=== PATIENT | female | born 1965 | race Caucasian/White ===

== ENCOUNTER → 2022-08-05 13:06 | Outpatient (POV) | payer OTHER, SELFPAY ==
[2022-08-05 13:36] VITALS: BP 125/59; PULSE 89; RESP 18; O2SAT 97; BMI 32.9
--- NOTE | 2022-08-05 13:44 | EXP.PAIN.OV ---
HPI Data of Consult Patient: new to practice Consult date: 08/05/22 Requesting Physician: Davina Saucedo APRN Consult Narrative Reason for consult: Right shoulder pain, right mid back pain History of present illness: Ms. Ying is a 57 year old female who presents today as a new patient. She is a self-referral. Today she rates her pain a 5 out of 10. Patient states that her pain is all in her right shoulder area that radiates down to her mid back. Patient does state this is been going on for over 2 years. She states her left side never gives her any trouble that it is always on along the right. She describes it as an aching, throbbing sensation that is worse with increased activity. Patient does state that it interferes with her ability to perform activities of daily living such as cooking and cleaning or simply getting ready in the morning. Patient has tried [id number] Tylenol and ibuprofen along with heat and ice with minimal improvement. She does also use a TENS unit with some help. Patient has tried multiple topicals with no additional relief. She is not currently on any scheduled medications. Her Bola is [phone]. Its been reviewed and appropriate. CC: Davina Saucedo APRN [facility] Disclaimer: The information contained in this section may have been updated after the patient was seen, as this information can be updated by other users. Medical History (Updated 08/05/22 @ 13:49 by Davina Saucedo APRN) Diabetes Rheumatoid arthritis Social History Smoking Status: Never smoker alcohol intake: never current occupational status: employed Travel in the last 8 weeks: None Review of Systems Review of Systems Review of systems:: pertinent systems reviewed and negative unless documented below Review of systems (narrative): Review of Systems: General: No recent weight changes, no fever, no sleep disturbances Respiratory: No cough, no shortness of air, no recurring pulmonary infections Cardiovascular/peripheral vascular: No chest pain, no palpitations, no edema, no shortness of breath Gastrointestinal: No new onset incontinence, normal bowel movements reported Genitourinary: No new onset incontinence Musculoskeletal: Right shoulder pain, right mid back pain Psychiatric: [Normal mood/affect] Neurological: [Denies weakness in extremities], [denies balance issues] Meds Home Medications and Allergies Home Medications Medication Instructions Recorded Confirmed Type etanercept 50 mg/mL (1 mL) 50 mg SQ WEEKLY Diabetes 08/05/22 08/05/22 History subcutaneous pen injector (Enbrel SureClick) tirzepatide 2.5 mg/0.5 mL See Rx Instructions .Route 08/05/22 08/05/22 History subcutaneous pen injector .COMPLEX Diabetes (Mounjaro) New Prescriptions to Start Prescriptions: Allergies Allergy/AdvReac Type Severity Reaction Status Date / Time No Known Allergies Allergy Unverified 03/29/17 14:00 Objective Narrative: Physical Exam: General: Alert and oriented x3, no acute distress, pleasant and cooperative Lungs: Respirations even and unlabored, symmetrical chest expansion Eyes: PERRL Musculoskeletal: Flexion and extension of cervical [spine] somewhat guarded secondary to pain, [antalgic gait noted] point tenderness noted along right trapezius and right thoracic paraspinous muscles Neurological: Speech clear, no gross sensory deficit Oswestry index score of 13/26% Additional findings Additional findings: [facility] 10/16/2021 MRI cervical spine without contrast Findings: Alignment is normal. Vertebral body height is preserved. Signal intensity within the substance of the spinal cord is normal. Bone marrow signal intensity is normal. Paraspinal soft tissues are within normal limits. C2-3: There is no focal disc herniation. There is no central canal stenosis or right neuroforaminal narrowing. There is moderate to severe left neuroforaminal narrowing related to fa
== END ==
PROVIDERS: Visit Provider Nurse Practitioner Family
DX: M50.30 Other cervical disc degeneration, unspecified cervical region (principal); M47.812 Spondylosis without myelopathy or radiculopathy, cervical region; M25.511 Pain in right shoulder; M79.18 Myalgia, other site
CPT/HCPCS: 99202; G0463

== ENCOUNTER 2022-08-20 13:55 | Day surgery (SDC) | payer OTHER, SELFPAY ==
[2022-08-20 14:05] VITALS: BP 103/64; PULSE 90; RESP 20; TEMP 36.6; O2SAT 97; BMI 32.9
--- NOTE | 2022-08-20 14:14 | P.PCN_ITS ---
Procedure Date: 08/20/22 Time: 14:14 Anesthesiologist:: Curtis Castelan MD Complications:: None Pre-procedure Diagnosis:: Neck pain myofascial in origin and right shoulder pain Post-procedure Diagnosis:: Same Indications for Procedure:: This patient is a pleasant 57-year-old white female who is well-known to us with psoriatic arthritis. She has had some neck pain with right shoulder pain. She has previously had a cervical epidural steroid injection done at [facility]. This did help her some however now she has myofascial pain over the right upper trapezius and right scapular area. We will do trigger point injections to this area today. Procedure Details:: Trigger point injections x4 to right upper trapezius and right scapular area Informed consent was obtained the risk and benefits of the procedure were explained to the patient. Patient was taken to the procedure room. The right upper trapezius and right scapular area were prepped using ChloraPrep. Trigger points were palpated and marked. Each of these trigger points were injected with bupivacaine 0.25% 3 mils and Depo-Medrol 10 mg. A total of 4 trigger points were injected using total of 40 mg Depo-Medrol. Patient tolerated the procedure well with no complications. Plan and Disposition:: We will follow-up with this patient in 2 weeks. Will reevaluate symptoms at that time.
== END 2022-08-20 14:30 | disposition home or self-care (01) ==
PROVIDERS: Visit Provider Anesthesiology
DX: M79.18 Myalgia, other site (principal); M25.511 Pain in right shoulder
CPT/HCPCS: 20552; J1040

== ENCOUNTER → 2022-11-18 12:36 | Outpatient (POV) | payer BC, SELFPAY ==
--- NOTE | 2022-11-18 13:02 | EXP.PAIN.SOA ---
[facility] Pain Management SOAP Note Subjective:: Patient is a pleasant 57-year-old female who presents today for follow-up. We are currently treating the patient for myofascial pain of her right upper trapezius and right scapular area. Today she rates her pain a 3 out of 10. Patient states that her pain is all in her right shoulder area that radiates down her shoulder blades. She previously had trigger point injections at this location that provided 100% improvement lasting approximately 2.5 months. She states during that time she was able to increase her activity with overall improved function and decreased pain. She is interested in repeating this injection. She describes her current pain as an aching, throbbing sensation that is worse with increased activity. Patient does state that it interferes with her ability to perform activities of daily living such as cooking and cleaning or simply getting ready in the morning. Patient has tried [id number] Tylenol and ibuprofen along with heat and ice with minimal improvement. She does also use a TENS unit with some help. Patient has tried multiple topicals with no additional relief. She is not currently on any scheduled medications. Her Bola is appropriate. Review of Systems: General: No recent weight changes, no fever, no sleep disturbances Respiratory: No cough, no shortness of air, no recurring pulmonary infections Cardiovascular/peripheral vascular: No chest pain, no palpitations, no edema, no shortness of breath Gastrointestinal: No new onset incontinence, normal bowel movements reported Genitourinary: No new onset incontinence Musculoskeletal: Right shoulder pain Psychiatric: [Normal mood/affect] Neurological: [Denies weakness in extremities], [denies balance issues] Objective:: Physical Exam: General: Alert and oriented x3, no acute distress, pleasant and cooperative Lungs: Respirations even and unlabored, symmetrical chest expansion Eyes: PERRL Musculoskeletal: Flexion and extension of cervical [spine] somewhat guarded secondary to pain, [antalgic gait noted] point tenderness noted along right upper trapezius and right scapular area Neurological: Speech clear, no gross sensory deficit Assessment:: Myofascial pain of right upper trapezius and right scapular Plan:: Patient is experiencing more pain around her right shoulder with limited range of motion of her cervical spine. Patient did have point tenderness at her right upper trapezius and right scapular area. I have discussed with patient that she may benefit from trigger point's at these locations. Risk and benefits were explained to the patient and she would like to proceed forward with this plan of care. Patient will be scheduled for trigger point injections of her right trapezius and right scapular area. Patient has been instructed to contact the clinic with any concerns before the next appointment. Dr. Castelan has reviewed this note and agrees with this plan of care. This note was dictated using voice recognition software and make contain errors or omissions. [facility] Disclaimer: The information contained in this section may have been updated after the patient was seen, as this information can be updated by other users. Medical History Diabetes Rheumatoid arthritis Family History (Updated 08/20/22 @ 15:12 by Niharika Leroy RN) Other No significant family history Social History (Updated 08/20/22 @ 15:12 by Niharika Leroy RN) Smoking Status: Never smoker alcohol intake: never current occupational status: employed and other Travel in the last 8 weeks: None
[2022-11-18 14:06] VITALS: BP 114/74; PULSE 96; RESP 18; O2SAT 98; BMI 31.1
== END ==
PROVIDERS: Visit Provider Nurse Practitioner Family
DX: M79.18 Myalgia, other site (principal)
CPT/HCPCS: 99212; G0463

== ENCOUNTER 2022-12-03 14:28 | Day surgery (SDC) | payer BC, SELFPAY ==
[2022-12-03 14:50] VITALS: BP 119/74; PULSE 92; RESP 20; TEMP 36.6; O2SAT 99; BMI 29.2
[2022-12-03 15:11] VITALS: BP 119/74; PULSE 92; RESP 20; O2SAT 99
--- NOTE | 2022-12-03 15:41 | EXP.PAIN.PRO ---
Procedure Date: 12/03/22 Time: 15:10 Anesthesiologist:: Davina Saucedo APRN Complications:: None Pre-procedure Diagnosis:: Myofascial pain of right trapezius and right rhomboid muscles Post-procedure Diagnosis:: Myofascial pain of the right cervical paraspinous, right trapezius and right rhomboid muscles Indications for Procedure:: Patient is a pleasant 57-year-old female who presents today for trigger point injections of the right trapezius and right rhomboid muscles. We are currently treating the patient for myofascial pain of the right trapezius and right rhomboid muscles. Today she rates her pain as a 7 out of 10. Patient denies any new trauma or injury. She denies any change to the location or type of pain she experiences. Patient does state that she still has been experiencing more pain and around her shoulder and right scapular muscles. Patient previously had trigger point injections in this location that did provide approximately 100% improvement lasting several months. Patient does present today for repeat injection. Her Bola has been reviewed and is appropriate. Physical Exam: General: Alert and oriented x3, no acute distress, pleasant and cooperative Lungs: Respirations even and unlabored, symmetrical chest expansion Eyes: PERRL Musculoskeletal: Flexion and extension of cervical [spine] somewhat guarded secondary to pain, Point tenderness noted along right cervical paraspinous, right trapezius and right rhomboid muscles Neurological: Speech clear, no gross sensory deficit Procedure Details:: Patient was taken into the procedure room and placed in a seated position. Noninvasive monitoring was applied to the patient such as a noninvasive blood pressure cuff and pulse oximeter. The patient was then cleansed with ChloraPrep as a cleansing solution along her neck and right shoulders/scapular area. In sterile technique, using a 25-gauge needle of 10 mL of solution containing 0.25% bupivacaine and 40 mg Depo-Medrol were then incrementally injected into her right cervical paraspinous, right trapezius and right rhomboid muscles. Needle was removed and sterile bandages applied. Patient tolerated the procedure with no complications. Plan and Disposition:: Patient has been counseled to contact the office for her next appointment date as needed. Patient was discharged neurologically intact. Patient has been instructed to contact the clinic with any concerns before the next appointment. Dr. Castelan has reviewed this note and agrees with this plan of care. This note was dictated using voice recognition software and make contain errors or omissions.
== END 2022-12-03 15:17 | disposition home or self-care (01) ==
PROVIDERS: Visit Provider Anesthesiology
DX: M79.18 Myalgia, other site (principal)
CPT/HCPCS: 20553; J1040